=== PATIENT | male | born 1990 | race Hispanic/Latino ===

== ENCOUNTER 2019-10-13 11:01 | Emergency (ER) | payer SELFPAY ==
[~2019-10-13] VITALS: Ht 177.8 cm; Wt 86.2 kg
[2019-10-13] MEDS ORDERED: ONDANSETRON HCL INJ 2MG/ML 2ML 2 MG/ML VIAL IV STA (11:23)
[2019-10-13] MEDS ORDERED: MORPHINE SULFATE INJ 4 MG/ML INJ 1ML IV ONE (11:30)
[2019-10-13] MEDS ORDERED: CEFEPIME 1GM/NS 0.9% 50 ML 50 ML IV ONE (11:30)
[2019-10-13] MEDS ORDERED: VANCOMYCIN 1GM/NS 250 ML 250 ML IV ONE (11:30)
--- NOTE | 2019-10-13 11:34 | Emergency Department Note ---
History of Present Illnes History of Present Illness Chief Complaint: Skin Rash or Abscess History of Present Illness This is a 28 year old male arrives to the ED with pain and swelling over the right side of his face. Patient states he is taking Augmentin with no relief. Patient states he is predisposed to getting abscesses like this. . Historian: Patient Arrival Mode: Car Onset (how long ago): day(s) Radiation: Reports non-radiation Severity: mild Onset quality: gradual Duration (how long): day(s) Timing of current episode: constant Chronicity: new Past Medical/Family History Physician Review I have reviewed the patient's past medical and family history. Any updates have been documented here. Past Medical History Recent Fever: No Clinical Suspicion of Infectio: No New/Unexplained Change in Ment: No Social History Smoking Cessation: Current some day smoker Alcohol Use: Social Review of Systems Review of Systems Constitutional: Reports no symptoms EENTM: Reports no symptoms Cardiovascular: Reports no symptoms Respiratory: Reports no symptoms Gastrointestinal: Reports no symptoms Genitourinary: Reports no symptoms Musculoskeletal: Reports no symptoms Integumentary: Reports as per HPI, Reports other (cheek/face abscess) Neurological: Reports no symptoms Psychological: Reports no symptoms Endocrine: Reports no symptoms Hematological/Lymphatic: Reports no symptoms Physical Exam Related Data Allergies: Coded Allergies: clindamycin (Verified Allergy, Severe, 10/13/19) Triage Vital Signs Vital Signs Date Time Temp Pulse Resp B/P (MAP) Pulse Ox O2 Delivery O2 Flow Rate FiO2 10/13/19 11:12 98.7 67 18 114/91 100 Room Air Vital signs reviewed: Yes Physical Exam CONSTITUTIONAL Constitutional: Present well-developed, Present well-nourished HENT HENT: Present normocephalic, Present atraumatic, Present oropharynx clear/moist, Present other (right-sided cellulitis and palpable abscess present with 1 cm area of ulceration, marked swelling noted extending up to the lower lid) HENT L/R: Present left ext ear normal, Present right ext ear normal EYES Eyes: Reports PERRL, Reports conjunctivae normal NECK Neck: Present ROM normal PULMONARY Pulmonary: Present effort normal, Present breath sounds normal CARDIOVASCULAR Cardiovascular: Present regular rhythm, Present heart sounds normal, Present ca pillary refill normal, Present normal rate GASTROINTESTINAL Abdominal: Present soft, Present nontender, Present bowel sounds normal GENITOURINARY Genitourinary: Present exam deferred SKIN Skin: Present warm, Present dry MUSCULOSKELETAL Musculoskeletal: Present ROM normal NEUROLOGICAL Neurological: Present alert, Present oriented x 3, Present no gross motor or sensory deficits PSYCHOLOGICAL Psychological: Present mood/affect normal, Present judgement normal Results Laboratory Lab results reviewed: Yes Imaging Imaging results reviewed: Yes Impressions IMPRESSION: 1. Consistent with right premaxillary cellulitis adjacent to right tooth #8 periapical lucency. No drainable fluid collections in the adjacent soft tissues at this time. 2. Right ethmoidal and maxillary sinusitis. Assessment & Plan Medical Decision Making MDM 28-year-old male arrives to the ED right-sided facial swelling, concerns of underlying abscess and facial cellulitis. CT face concerning for cellulitis/abscess with a source being odontoid in origin. Patient required transfer to [facility] for oral maxillary facial surgery. Patient covered with empiric antibiotics prior to transfer. Assessment & Plan Final Impression: (1) Dental abscess (2) Facial cellulitis Depart Disposition: TRANS TO OTHER [facility] Last Vital Signs Date Time Temp Pulse Resp B/P (MAP) Pulse Ox O2 Delivery O2 Flow Rate FiO2 10/13/19 11:12 98.7 67 18 114/91 100 Room Air NANCY HINKLE DO Oct 13, 2019 11:33
[2019-10-13 11:37] LABS: BASOPHILS % 0.2 % (0.0-1.0); EOSINOPHILS # (AUTO) 0.1 (0.0-0.4); EOSINOPHILS % 0.8 % (0.0-6.0); HEMATOCRIT 45.1 % (38.2-49.6); LYMPHOCYTES # (AUTO) 1.7 (1.0-3.2); LYMPHOCYTES % 19.8 % (18.0-39.1); MEAN CORPUSCULAR HEMOGLOBIN 28.5 pg (28-32); MEAN CORPUSCULAR HGB CONC 33.3 g/dL (31-35); MEAN CORPUSCULAR VOLUME 85.6 fL (81-99); MONOCYTES # (AUTO) 0.5 (0.2-0.8); MONOCYTES % 5.8 % (4.4-11.3); NEUTROPHILS # (AUTO) 6.2 (2.1-6.9); NEUTROPHILS % 73.2 % (38.7-80.0); RED BLOOD COUNT 5.27 x10e6/uL (4.3-5.7); RED CELL DISTRIBUTION WIDTH 11.7 % (11.7-14.4)
[2019-10-13] MEDS ORDERED: SODIUM CHLORIDE 0.9% 50ML 50 ML ONE (11:39)
[2019-10-13] MEDS ORDERED: IOPAMIDOL 370 MG/ML 200 ML INFUS..BTL INJ ONE (11:39)
[2019-10-13 11:42] LABS: INR 0.95; PROTHROMBIN TIME 13.1 seconds (11.9-14.5)
[2019-10-13 11:43] LABS: PARTIAL THROMBOPLASTIN TIME 35.3 seconds (23.8-35.5)
[2019-10-13 11:49] LABS: ALANINE AMINOTRANSFERASE 12 IU/L (0-55); ALBUMIN 4.1 g/dL (3.5-5.0); ALBUMIN/GLOBULIN RATIO 1.2 (0.8-2.0); ALKALINE PHOSPHATASE 66 IU/L (40-150); ANION GAP 10.7 mmol/L (8-16); BLOOD UREA NITROGEN 12 mg/dL (7-26); BUN/CREATININE RATIO 15 (6-25); CARBON DIOXIDE 26 mmol/L (22-29); CHLORIDE 106 mmol/L (98-107); CREATINE KINASE 146 IU/L (30-200); CREATININE, SERUM 0.82 mg/dL (0.72-1.25); EST GLOMERULAR FILTRATION RATE > 60 ML/MIN (60-); GLUCOSE 90 mg/dL (74-118); POTASSIUM 3.7 mmol/L (3.5-5.1); SODIUM 139 mmol/L (136-145)
--- NOTE | 2019-10-13 12:40 | Diagnostic Imaging Report ---
EXAMINATION: CT of the face HISTORY: 28-year-old male with right cheek/facial abscess and cellulitis. COMPARISON: None available TECHNIQUE: Multidetector helical axial images were acquired through the face with contrast and were reconstructed in bone and soft tissue algorithms. Images were viewed in multiplanar format. Intravenous Contrast: 100 mL of Isovue 370. Dose modulation, iterative reconstruction, and/or weight based adjustment of the mA/kV was utilized to reduce the radiation dose to as low as reasonably achievable. FINDINGS: Bones: Unremarkable. Facial soft tissues: Right premaxillary subcutaneous soft tissue swelling, note is made of a probable piecing seen in the right lateral premaxillary skin. Additional focal swelling in the right para median premaxillary soft tissues/upper lip, adjacent to periapical lucency of the right maxillary central incisor (tooth #8). Paranasal sinuses and drainage pathways: Mucosal inflammatory thickening and partial opacification of the right anterior ethmoidal and maxillary sinuses. The remaining paranasal sinuses are clear. The ostiomeatal units, fronto-nasal and spheno-ethmoidal recesses are clear. Orbits contents: Unremarkable. Nasal septum: Midline. Anatomic variations: No significant anatomic variations. Dentition: As above, otherwise no acute abnormalities IMPRESSION: 1. Consistent with right premaxillary cellulitis adjacent to right tooth #8 periapical lucency. No drainable fluid collections in the adjacent soft tissues at this time. 2. Right ethmoidal and maxillary sinusitis. Signed by: Dr. Julia Burris M.D. on 10/13/2019 12:37 PM
--- OUTSIDE RECORDS SUMMARY | 2019-10-13 13:07 | XMS REPORT | Continuity of Care Document ---
Author Author [facility] t Organization [facility] Address [address] [place] [address] Dr. 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 Allergies, Adverse Reactions, Alerts This patient has no known allergies or adverse reactions. Medications This patient has no known medications. Procedures This patient has no known procedures. Results Test Description Test Time Test Comments Results Result Comments Source CT MAX FAC/PARANASAL W 2019-10-13 12:13:[address] [address] Patient Name: GUADALUPE CHAIREZ MR #: [id number] : 1990 Age/Sex: 28/M Req #: [id number] Adm Physician: Ordered by: NANCY HINKLE DO Report #: [id number] Location: ER Room/Bed: Procedure: [id number] CT/CT MAX FAC/PARANASAL W Exam Date: 10/13/19 Exam Time: 1136 REPORT STATUS: Signed EXAMINATION: CT of the face HISTORY: 28-year-old male with right cheek/facial abscess and cellulitis. COMPARISON: None available TECHNIQUE: Multidetector helical axial images were acquired through the face with contrast and were reconstructed in bone and soft tissue algorithms. Images were viewed in multiplanar format. Intravenous Contrast: 100 mL of Isovue 370. Dose modulation, iterative reconstruction, and/or weight based adjustment of the mA/kV was utilized to reduce the radiation dose to as low as reasonably achievable. FINDINGS: Bones: Unremarkable. Facial soft tissues: Right premaxillary subcutaneous soft tissue swelling, note is made of a probable piecing seen in the right lateral premaxillary skin. Additional focal swelling in the right para median premaxillary soft tissues/upper lip, adjacent to periapical lucency of the right maxillary central incisor (tooth #8). Paranasal sinuses and drainage pathways: Mucosal inflammatory thickening and partial opacification of the right anterior ethmoidal and maxillary sinuses. The remaining paranasal sinuses are clear. The ostiomeatal units, fronto- nasal and spheno-ethmoidal recesses are clear. Orbits contents: Unrema rkable. Nasal septum: Midline. Anatomic variations: No significant anatomic variations. Dentition: As above, otherwise no acute abnormalities IMPRESSION: 1. Consistent with right premaxillary cellulitis adjacent to right tooth #8 periapical lucency. No drainable fluid collections in the adjacent soft tissues at this time. 2. Right ethmoidal and maxillary sinusitis. Signed by: Dr. Tito Burris M.D. on 10/13/2019 12:37 PM Dictated By: TITO BURRIS MD [id number] Transcribed By: EARNESTINE on 10/13/19 1237 COPY TO: NANCY HINKLE DO
[2019-10-13 13:40] LABS: PLATELET COUNT 18 x10e3/uL (140-360)
[2019-10-13 14:11] LABS: AMPHETAMINES SCREEN,URINE NEGATIVE (NEGATIVE); PHENCYCLIDINE SCREEN,URINE NEGATIVE (NEGATIVE)
[2019-10-13 14:12] LABS: BENZODIAZEPINES SCREEN,URINE NEGATIVE (NEGATIVE)
== END 2019-10-13 16:02 | disposition other institution (70) ==
LOC: ER 11:15
DX: K04.7 Periapical abscess without sinus (principal); L03.211 Cellulitis of face; F17.210 Nicotine dependence, cigarettes, uncomplicated
CPT/HCPCS: 36415; 70487; 80053; 80307; 82550; 82553; 83605; 84484; 85025; 85610; 85730; 87040; 99284; J0692; J2270; J2405; J3370; Q9967